=== PATIENT | male | born 1960 | race Hispanic/Latino ===

== ENCOUNTER 2017-09-23 17:27 | Inpatient (IN) | payer OTHER ==
[~2017-09-23] VITALS: Ht 175.3 cm; Wt 95.8 kg
[2017-09-23 18:04] LABS: BASOPHILS % (AUTO) 1.2 % (0.0-5.0); LYMPHOCYTES % (AUTO) 25.7 % (21.0-51.0); MEAN CORPUSCULAR HEMOGLOBIN 33.1 pg (27.0-33.0); MEAN CORPUSCULAR HGB CONC 34.4 g/dL (32.0-36.0); MEAN CORPUSCULAR VOLUME 96.1 fL (79-99); MONOCYTES % (AUTO) 11.3 % (3.0-13.0); NEUTROPHILS % (AUTO) 60.8 % (40.0-77.0); PLATELET COUNT (AUTO) 222 K/uL (130-400); RED BLOOD CELL COUNT(AUTO) 5.31 MIL/uL (4.50-6.20); RED CELL DISTRIBUTION WIDTH 15.3 % (11.0-15.5); WHITE BLOOD COUNT (AUTO) 7.4 K/uL (4.8-10.8)
[2017-09-23] MEDS ORDERED: IOHEXOL-350 75 ML VIAL IV ONE (18:14)
[2017-09-23 18:19] LABS: CREATININE 0.8 mg/dL (0.5-1.5); POTASSIUM 3.1 mmol/L (3.5-5.1)
[2017-09-23 18:20] LABS: INR 0.95 (0.85-1.15); PARTIAL THROMBOPLASTIN TIME 26.6 SEC (26.3-35.5)
[2017-09-23 18:29] LABS: ALBUMIN 3.4 g/dL (3.5-5.0); BILIRUBIN,TOTAL 0.5 mg/dL (0.2-1.0); TOTAL PROTEIN, SERUM 7.6 g/dL (6.0-8.3)
[2017-09-23] MEDS ORDERED: ASPIRIN 325 MG TABLET ONE (18:59)
[2017-09-23] MEDS ORDERED: NICOTINE 21 MG/ 24 HR PATCH TD SCH (20:00)
[2017-09-23 20:36] LABS: APPEARANCE,URINE Clear (CLEAR); BILIRUBIN,URINE Negative (NEGATIVE); COLOR,URINE Yellow (YELLOW); GLUCOSE, URINE (UA) Negative (NEGATIVE); KETONES,URINE Negative (NEGATIVE); LEUKOCYTE ESTERASE ,URINE Negative (NEGATIVE); NITRATE,URINE Negative (NEGATIVE); OCCULT BLOOD,URINE Negative (NEGATIVE); PH,URINE 7.5 (5.0-8.0); PROTEIN,URINE POS 2+ (NEGATIVE)
[2017-09-23 20:47] LABS: BACTERIA,URINE None Seen /HPF (None Seen); RBC,URINE None Seen /HPF (0-1); SQUAMOUS EPITHELIAL CELL,UR None Seen /HPF (0-2); WBC,URINE 0-1 /HPF (0-1)
[2017-09-23 21:19] LABS: AMPHET/METH SCREEN,URINE NEGATIVE (NEGATIVE); BARBITURATE SCREEN, URINE NEGATIVE (NEGATIVE); BENZODIAZEPINES SCREEN,URINE NEGATIVE (NEGATIVE); CANNABINOID SCREEN,URINE NEGATIVE (NEGATIVE); COCAINE SCREEN,URINE NEGATIVE (NEGATIVE); OPIATE SCREEN,URINE NEGATIVE (NEGATIVE); PHENCYCLIDINE SCREEN,URINE NEGATIVE (NEGATIVE)
[2017-09-23 21:30] VITALS: BP 173/101
[2017-09-23] MEDS ORDERED: POTASSIUM CHLORIDE 10% ELIXIR 20 MEQ/15 ML UDCUP PO PRN (21:45)
[2017-09-23] MEDS ORDERED: LIDOCAINE HCL-MPF 1% 2ML VIAL IVP PRN (21:45)
[2017-09-23] MEDS ORDERED: POTASSIUM CHLORIDE 20MEQ/100ML 100 ML IV PRN (21:45)
[2017-09-23] MEDS ORDERED: ACETAMINOPHEN 325 MG TAB PO PRN (21:45)
[2017-09-23] MEDS ORDERED: ONDANSETRON HCL 4 MG/2 ML VIAL IVP PRN (21:45)
[2017-09-24 00:04] VITALS: BP 161/95
[2017-09-24] MEDS ORDERED: CLON0.1T PO (02:10)
[2017-09-24] MEDS ORDERED: AMLO5TAB2 PO (02:10)
[2017-09-24] MEDS ORDERED: VALS1TAB79 PO (02:10)
[2017-09-24 03:56] VITALS: BP 174/98
[2017-09-24 04:05] LABS: HEMATOCRIT 48.1 % (42-54); MEAN CORPUSCULAR HEMOGLOBIN 33.1 pg (27.0-33.0); MEAN CORPUSCULAR HGB CONC 34.5 g/dL (32.0-36.0); MEAN CORPUSCULAR VOLUME 95.9 fL (79-99); PLATELET COUNT (AUTO) 210 K/uL (130-400); RED BLOOD CELL COUNT(AUTO) 5.01 MIL/uL (4.50-6.20); RED CELL DISTRIBUTION WIDTH 15.1 % (11.0-15.5)
[2017-09-24 04:10] LABS: HEMOGLOBIN A1C 7.2 % (4.0-6.0)
[2017-09-24 04:24] LABS: BILIRUBIN,TOTAL 0.7 mg/dL (0.2-1.0); CREATININE 0.9 mg/dL (0.5-1.5); POTASSIUM 3.3 mmol/L (3.5-5.1); THYROID STIMULATING HORMONE 2.41 uIU/mL (0.36-3.74); TOTAL PROTEIN, SERUM 6.8 g/dL (6.0-8.3)
[2017-09-24 07:00] VITALS: BP 176/91
[2017-09-24] MEDS ORDERED: ENOXAPARIN SODIUM 40 MG/0.4 ML SYRINGE SQ SCH (09:00)
[2017-09-24] MEDS: ENOXAPARIN SODIUM 40 MG/0.4 ML SYRINGE SQ SCH (09:00)
[2017-09-24] MEDS: HYDROCHLOROTHIAZIDE 25 MG TABLET PO SCH (10:07)
[2017-09-24] MEDS: LOSARTAN 100 MG TABLET PO SCH (10:07)
[2017-09-24] MEDS: AMLODIPINE BESYLATE 5 MG TAB PO SCH (10:07)
[2017-09-24] MEDS: FAMOTIDINE 20MG TAB 20 MG TAB PO SCH ×2 (10:08→22:48)
[2017-09-24] MEDS: POTASSIUM CHLORIDE 20 MEQ ERTAB PO PRN ×2 (10:08→14:18)
[2017-09-24] MEDS: NICOTINE 21 MG/ 24 HR PATCH TD SCH (10:10)
[2017-09-24] MEDS ORDERED: GADOBENATE DIMEGLUMINE 20 ML IV ONE (10:19)
[2017-09-24] MEDS ORDERED: DIAZEPAM 5 MG TABLET ONE (10:23)
[2017-09-24] MEDS ORDERED: DIAZEPAM 5 MG TABLET PO ONE (10:30)
[2017-09-24 11:00] VITALS: BP 169/91
[2017-09-24] MEDS: ASPIRIN 325 MG TABLET PO SCH (11:25)
[2017-09-24] MEDS: INSULIN HUMULIN R 100 UNIT/ML 3ML SQ SCH ×2 (11:30→22:43)
[2017-09-24] MEDS: CLONIDINE HCL 0.1 MG TABLET PO PRN (14:18)
[2017-09-24 16:00] VITALS: BP 158/92
[2017-09-24 20:00] VITALS: BP 156/79
[2017-09-24] MEDS ORDERED: POTASSIUM CHLORIDE 10 MEQ/TAB.SA PO ONE ×2 (22:41)
[2017-09-24] MEDS: ATORVASTATIN CALCIUM 40 MG TABLET PO SCH (22:48)
[2017-09-24] MEDS: GABAPENTIN 100 MG CAPSULE PO SCH (22:48)
[2017-09-25] VITALS (7 sets, daily range): BP systolic 147–193; BP diastolic 74–99
[2017-09-25] MEDS: INSULIN HUMULIN R 100 UNIT/ML 3ML SQ SCH ×4 (06:35→20:57)
[2017-09-25] MEDS: HYDROCHLOROTHIAZIDE 25 MG TABLET PO SCH (09:30)
[2017-09-25] MEDS: LOSARTAN 100 MG TABLET PO SCH (09:30)
[2017-09-25] MEDS: NICOTINE 21 MG/ 24 HR PATCH TD SCH (09:30)
[2017-09-25] MEDS: FAMOTIDINE 20MG TAB 20 MG TAB PO SCH ×2 (09:30→20:59)
[2017-09-25] MEDS: AMLODIPINE BESYLATE 5 MG TAB PO SCH (09:30)
[2017-09-25] MEDS: ASPIRIN 325 MG TABLET PO SCH (09:30)
[2017-09-25] MEDS: GABAPENTIN 100 MG CAPSULE PO SCH ×2 (09:30→20:59)
[2017-09-25] MEDS: ENOXAPARIN SODIUM 40 MG/0.4 ML SYRINGE SQ SCH (09:31)
[2017-09-25] MEDS: CLONIDINE HCL 0.1 MG TABLET PO PRN (11:59)
[2017-09-25] MEDS ORDERED: LISINOPRIL 10 MG TABLET PO SCH (14:15)
[2017-09-25] MEDS ORDERED: AMLODIPINE BESYLATE 5 MG TAB PO ONE (14:51)
[2017-09-25] MEDS: HYDRALAZINE HCL 20 MG/ML VIAL IV PRN (17:14)
[2017-09-25] MEDS: ATORVASTATIN CALCIUM 40 MG TABLET PO SCH (20:59)
[2017-09-25] MEDS: METOPROLOL TARTRATE 25 MG TAB PO SCH (20:59)
[2017-09-26 04:01] VITALS: BP 166/83
[2017-09-26] MEDS: HYDRALAZINE HCL 20 MG/ML VIAL IV PRN ×2 (05:14→12:44)
[2017-09-26] MEDS: INSULIN HUMULIN R 100 UNIT/ML 3ML SQ SCH ×2 (06:09→11:30)
[2017-09-26 07:00] VITALS: BP 159/86
[2017-09-26] MEDS: LOSARTAN 100 MG TABLET PO SCH (08:13)
[2017-09-26] MEDS: HYDROCHLOROTHIAZIDE 25 MG TABLET PO SCH (08:14)
[2017-09-26] MEDS: METOPROLOL TARTRATE 25 MG TAB PO SCH (08:14)
[2017-09-26] MEDS: GABAPENTIN 100 MG CAPSULE PO SCH (08:14)
[2017-09-26] MEDS: FAMOTIDINE 20MG TAB 20 MG TAB PO SCH (08:14)
[2017-09-26] MEDS: ASPIRIN 325 MG TABLET PO SCH (08:15)
[2017-09-26] MEDS: ENOXAPARIN SODIUM 40 MG/0.4 ML SYRINGE SQ SCH (08:15)
[2017-09-26] MEDS ORDERED: AMLODIPINE BESYLATE 5 MG TAB PO SCH (09:00)
[2017-09-26] MEDS: NICOTINE 21 MG/ 24 HR PATCH TD SCH (09:43)
[2017-09-26 11:00] VITALS: BP 163/86
[2017-09-26] MEDS ORDERED: GABA100C PO (12:35)
[2017-09-26] MEDS ORDERED: METO25 PO (12:35)
[2017-09-26] MEDS ORDERED: ASPI-1012 PO (12:35)
[2017-09-26] MEDS ORDERED: ATOR40TA69 PO (12:35)
[2017-09-26] MEDS ORDERED: AMLO5TAB4 PO (12:35)
[2017-09-26] MEDS ORDERED: NICO-705 TD (12:35)
[2017-09-26 14:00] VITALS: BP 144/78
== END 2017-09-26 14:14 | disposition home or self-care (01) | DRG 66 ==
LOC: EDH 17:27 → EDHIP 19:12 → OBSVTOIN 19:12 → 2AH 21:30
PROVIDERS: ADMIT Family Medicine; ATTEND Family Medicine
DX: I63.9 Cerebral infarction, unspecified (principal); E11.9 Type 2 diabetes mellitus without complications; E66.9 Obesity, unspecified; F17.210 Nicotine dependence, cigarettes, uncomplicated; I15.9 Secondary hypertension, unspecified; Z68.32 Body mass index [BMI] 32.0-32.9, adult; Z91.19 Patient's noncompliance with other medical treatment and regimen; Z82.49 Family history of ischemic heart disease and other diseases of the circulatory system
CPT/HCPCS: 36415; 70450; 70496; 70498; 70553; 71045; 80053; 80061; 80305; 81001; 82550; 82948; 83036; 83874; 84443; 84484; 85025; 85027; 85610; 85730; 93005; 93306; 93880; A9577; J0360; J1650; J1815; Q9967

== ENCOUNTER → 2021-12-09 | Outpatient (CLI) | payer OTHER ==
[~2021-12-09] MED LIST: AMLO5TAB4 PO; ASPI-1005 PO; ATOR40TA69 PO; CLON0.1T PO; CLOP75TA14 PO; GABA100C PO; METO25 PO; NICO-777 TD; VALS1TAB80 PO
== END | disposition home or self-care (01) ==
LOC: RAH 10:46
PROVIDERS: ATTEND Family Medicine
DX: R22.41 Localized swelling, mass and lump, right lower limb (principal)
CPT/HCPCS: 93971

== ENCOUNTER → 2023-09-15 | Outpatient (CLI) | payer OTHER ==
[~2023-09-15] MED LIST changes: +CLOP-31 PO; -CLOP75TA14 PO
== END | disposition home or self-care (01) ==
LOC: RAH 11:00
PROVIDERS: ATTEND Student in an Organized Health Care Education/Training Program
DX: I73.9 Peripheral vascular disease, unspecified (principal)
CPT/HCPCS: 93925

== ENCOUNTER → 2024-03-25 | Outpatient (CLI) | payer OTHER ==
--- NOTE | 2024-03-25 15:18 | HMCSR ---
APPROVED REPORT Laterality: Bilateral Indications Claudication: , PAD VELOCITY AND DOPPLER WAVEFORM ANALYSIS UKE OPERATOR (R) 125.6cm/sec, Monophasic, UKE OPERATOR (L) 198.3cm/sec, Biphasic, Prof Fem Art. (R) 296.7cm/sec, Monophasic, Moderate > 50%Prof Fem Art. (L) 251.2cm/sec, Monophasic , Moderate > 50% Fem Art Prox. (R) 93.0cm/sec, Fem Art Prox. (L) cm/sec, Occluded, Occluded Fem Art Mid. (R) cm/sec, Occluded, Fem Art Mid. (L) cm/sec, Occluded, Occluded Fem Art Dist (R) cm/sec, Occluded, Fem Art Dist. (L) cm/sec, Occluded, Occluded Pop Art(AK) (R) 24.5cm/sec, Monophasic, Pop Art (AK) (L) 50.4cm/sec, Monophasic, Pop Art (Fossa)(R) 34.3cm/sec, Monophasic, Pop Art (Fossa) (L) 46.9cm/sec, Monophasic, Pop Art(BK) (R) 34.3cm/sec, Monophasic, Pop Art (BK) (L) 55.9cm/sec, Monophasic, TECHNICAL SERVICES SPECIALIST Prox. (R) 40.9cm/sec, Monophasic, TECHNICAL SERVICES SPECIALIST Prox. (L) 83.4cm/sec, Monophasic, TECHNICAL SERVICES SPECIALIST Mid. (R) 37.7cm/sec, Monophasic, TECHNICAL SERVICES SPECIALIST Mid. (L) 56.5cm/sec, Monophasic, TECHNICAL SERVICES SPECIALIST Dist. (R) 30.5cm/sec, Monophasic, TECHNICAL SERVICES SPECIALIST Dist. (L) 68.2cm/sec, Monophasic, Per Art Prox. (R) cm/sec, Not visualizedPer Art Prox. (L) cm/sec, Not visualized MED[employer] Prox. (R) 34.2cm/sec, Monophasic, [employer]INA Prox. (L) 50.2cm/sec, Monophasic, [employer]INA Mid. (R) 31.4cm/sec, Monophasic [employer]INA Mid. (L) 23.3cm/sec, Monophasic, [employer] Dist. (R) 39.3cm/sec, Monophasic, MEDINA Dist. (L) 29.6cm/sec, Monophasic, Technologist Impression Right SFA is chronically occluded. Evidence of >50% stenosi in the Right DFA. Recollateralized flow into the Right proximal Popliteal artery. Left SFA is chronically occluded. Evidence of >50% stenosi in the Left DFA. Recollateralized flow into the Left proximal Popliteal artery. Conclusion Bilateral SFA occlusions Severe PAD Clinical correlation recommended Conclusion Bilateral SFA occlusions Severe PAD Clinical correlation recommended
--- NOTE | 2024-03-25 15:20 | HMCSR ---
APPROVED REPORT Bilateral Lower Extremity Venous Study for DVT., Venous Competence. Indications i87.1, i87.2 Vein Imaging CFV (R): Normal flow, augmentation and compression. No evidence of DVT. 18.6mm 1667ms of reflux. SFJ (R): Normal flow, augmentation and compression. No evidence of DVT. FEM (R): Normal flow, augmentation and compression. No evidence of DVT. POP (R): Normal flow, augmentation and compression. No evidence of DVT. 1050ms of reflux. DFV (R): Normal flow, augmentation and compression. No evidence of DVT. PTV (R): Normal flow, augmentation and compression. No evidence of DVT. Peroneals (R): Normal flow, augmentation and compression. No evidence of DVT. GAS (R): CFV (L): Normal flow, augmentation and compression. No evidence of DVT. 15.9mm 1733ms of reflux. SFJ (L): Normal flow, augmentation and compression. No evidence of DVT. FEM (L): Normal flow, augmentation and compression. No evidence of DVT. POP (L): Normal flow, augmentation and compression. No evidence of DVT. DFV (L): Normal flow, augmentation and compression. No evidence of DVT. PTV (L): Normal flow, augmentation and compression. No evidence of DVT. Peroneals (L): Normal flow, augmentation and compression. No evidence of DVT. Technologist Impression Deep veins of the bilateral lower extremities appear patent and compressible without thrombus. Deep venous reflux noted in the RCFV, RPopliteal and LCFV. Superficial venous insufficiency noted in the RSSV. RGSV junction 9.4mm 0.0ms thigh 5.3mm 0.0ms knee 4.5mm 0.0ms calf 2.8mm 0.0ms RSSV prox 2.3mm 0.0ms mid 3.4mm 850ms LGSV junction 8.6mm 417ms thigh 5.1mm 0.0ms knee 4.2mm 0.0ms calf 3.6mm 0.0ms LSSV prox 2.3mm 0.0ms mid 3.4mm 0.0ms Conclusion Deep venous reflux noted Consider formal venography with IVUS if iliac vein compression is suspected No DVT Conclusion Deep venous reflux noted Consider formal venography with IVUS if iliac vein compression is suspected No DVT
== END | disposition home or self-care (01) ==
LOC: SHCH 13:53
PROVIDERS: ATTEND Internal Medicine Cardiovascular Disease
DX: I87.2 Venous insufficiency (chronic) (peripheral) (principal); I73.9 Peripheral vascular disease, unspecified; I87.1 Compression of vein
CPT/HCPCS: 93925; 93970

== ENCOUNTER 2024-07-24 09:42 | Day surgery (SDC) | payer OTHER ==
[2024-07-20 09:52] LABS: HEMATOCRIT 41.4 % (42-54); MEAN CORPUSCULAR HEMOGLOBIN 33.4 pg (27.0-33.0); MEAN CORPUSCULAR HGB CONC 32.9 g/dL (32.0-36.0); MEAN CORPUSCULAR VOLUME 101.7 fL (79-99); RED BLOOD CELL COUNT(AUTO) 4.07 MIL/uL (4.50-6.20); RED CELL DISTRIBUTION WIDTH 15.8 % (11.0-15.5); WHITE BLOOD COUNT (AUTO) 6.4 K/uL (4.8-10.8)
[2024-07-20 09:58] LABS: INR 0.97 (0.85-1.15); PROTHROMBIN TIME 10.3 SEC (9.6-11.6)
[2024-07-20 09:59] LABS: PARTIAL THROMBOPLASTIN TIME 29.9 SEC (26.3-35.5)
[2024-07-20 10:00] LABS: CREATININE 1.2 mg/dL (0.5-1.3); POTASSIUM 4.1 mmol/L (3.5-5.1)
[2024-07-20 10:14] VITALS: BP 187/83; PULSE 68; RESP 18; TEMP 98.1
--- NOTE | 2024-07-20 12:47 | HMCIMG ---
CHEST 1VW HISTORY: Preop COMPARISON: 10/26/2017 FINDINGS: A frontal projection of the chest was obtained. No acute pulmonary infiltrates is seen. The heart is borderline enlarged. Degenerative changes are seen. Prominent interstitial markings are seen. No evidence of aortic calcification is seen. IMPRESSION: 1. No acute pulmonary infiltrate is seen.
--- NOTE | 2024-07-20 12:57 | EKG ---
[facility] Test Date: 2024-07-20 Test Time: 09:31:03 Pat Name: YUMIKO OTERO Department: Patient ID: [id number] Room: Gender: M Manager Pharmaceutical: [id number] : 1960 Requested By: DREAD HINTON Order Number: [id number] Reading MD: Venkatesh Sierra Measurements Intervals [place] Rate: 71 P: 55 MS: 186 QRS: 56 QRSD: 89 T: 79 QT: 395 QTc: 429 Interpretive Statements Sinus rhythm Probable left atrial enlargement Early Repolarization Compared to ECG 10/26/2017 07:10:16 Myocardial infarct finding now present ST (T wave) deviation still present Electronically Signed On 07-20-2024 14:57:05 CDT by Venkatesh Sierra Please click the below link to view image of tracing.
--- NOTE | 2024-07-21 10:31 | NUR ---
REPORT REPORTED EKG TO DR GARCIA. OK TO PROCEED LONG PT ASYMPTOMATIC.
--- NOTE | 2024-07-21 16:42 | NUR ---
preop pt and spouse informed of ozempic protocol. solid food until lunch on wednesday then clears until midnight then npo. understanding voiced
[~2024-07-24] VITALS: Ht 172.7 cm; Wt 108.4 kg
[2024-07-24] MEDS: ceFAZolin SODIUM 2 GM VIAL IVPB SCH (08:30)
[~2024-07-24 09:42] MED LIST changes: +AMLO-258 PO; -AMLO5TAB4 PO; -ASPI-1005 PO; +CHOL100046 PO; -CLON0.1T PO; +EMPA1TAB7 PO; +FOLI1TAB85 PO; -GABA100C PO; +HYDR25TA67 PO; +LOSA100T59 PO; +METO-391 PO; -METO25 PO; -NICO-777 TD; +PIOG30TA70 PO; +SEMA1PEN3 SQ; +SPIR50TA5 PO; -VALS1TAB80 PO; +XARELTO PO
[2024-07-24 10:25] VITALS: BP 142/83; PULSE 71; RESP 18; TEMP 97.2
[2024-07-24] MEDS ORDERED: HEParin-NS 1,000 UNIT/500 ML 500 ML IV ONE (10:30)
[2024-07-24] MEDS ORDERED: ceFAZolin SODIUM 1 GM VIAL ONE (10:34)
[2024-07-24] MEDS ORDERED: acetaMINOPHEN 0 ML ONE (10:54)
[2024-07-24] MEDS ORDERED: FAMOTIDINE 20MG VIAL IV ONE (10:54)
[2024-07-24] MEDS ORDERED: ketaMINE 50MG/ML SYRINGE 50 MG/ML DISP.SYRIN ONE (10:55)
[2024-07-24] MEDS ORDERED: LIDOCAINE PF 100MG/5ML (2%) SYRINGE 5ML ONE (10:56)
[2024-07-24] MEDS ORDERED: proPOFol 10 MG/ML 20ML VIAL IV ONE (10:56)
[2024-07-24] MEDS ORDERED: FENTanyl CITRate PF 50 MCG/1 ML 2ML VIAL ONE (10:57)
[2024-07-24] MEDS ORDERED: rocuRONium bROMide 10MG/1ML 5ML VL ONE (10:57)
[2024-07-24] MEDS: ceFAZolin SODIUM 2 GM VIAL ONE (11:14)
[2024-07-24] MEDS: 0.9%NACL 1000ML 1,000 ML IV ONE (11:14)
--- NOTE | 2024-07-24 12:29 | NUR ---
PROCEDURE CANCELED PER DR. ESQUEDA. MD SPOKE TO PATIENT AT BEDSIDE REGARDING POSSIBLE NEED FOR REPEAT PERIPHERAL ANGIOGRAM. PATIENT VERBALIZED UNDERSTANDING. SPOUSE JORGE MADE AWARE VIA TELEPHONE.
== END 2024-07-24 13:05 ==
LOC: DAH 09:42 → UNDOADMIN 09:42 → DAHIP 09:42 → EDSTATUS 12:00 → UNDODISIN 13:05 → DAH 13:05
PROVIDERS: ATTEND Thoracic Surgery (Cardiothoracic Vascular Surgery)
DX: I73.9 Peripheral vascular disease, unspecified (principal); Z53.8 Procedure and treatment not carried out for other reasons; I10 Essential (primary) hypertension; E11.9 Type 2 diabetes mellitus without complications; Z79.01 Long term (current) use of anticoagulants; Z79.899 Other long term (current) drug therapy; Z98.890 Other specified postprocedural states
CPT/HCPCS: 80048; 85027; 85610; 85730; 86850 ×2; 86900 ×2; 86901 ×2; 36415 ×2; 71045; 93005; 82948; A4223 ×2; A6260; A4663; J3490 ×2; J0690; J7030; J2003; J2704; J1644; A5120; A4215; A4222; A4221; A4216; G0378; J3010

== ENCOUNTER → 2024-09-05 | Outpatient (CLI) | payer OTHER ==
[2024-09-05 22:00] VITALS: PULSE 86; RESP 12
[2024-09-05 22:30] VITALS: PULSE 78; RESP 10
[2024-09-05 23:00] VITALS: PULSE 76; RESP 14
[2024-09-05 23:33] VITALS: PULSE 71; RESP 10
[2024-09-06] VITALS (11 sets, daily range): PULSE 71–87; RESP 8–12
== END | disposition home or self-care (01) ==
LOC: SLP 20:35
PROVIDERS: ATTEND Nurse Practitioner Family
DX: G47.33 Obstructive sleep apnea (adult) (pediatric) (principal); R06.83 Snoring; I10 Essential (primary) hypertension; E11.9 Type 2 diabetes mellitus without complications; I73.9 Peripheral vascular disease, unspecified; F41.9 Anxiety disorder, unspecified; N52.9 Male erectile dysfunction, unspecified; M54.2 Cervicalgia; R53.83 Other fatigue; M54.9 Dorsalgia, unspecified; M25.50 Pain in unspecified joint
CPT/HCPCS: 95810

== ENCOUNTER → 2024-09-10 | Outpatient (CLI) | payer OTHER ==
[2024-09-10 21:59] VITALS: PULSE 78; RESP 14
[2024-09-10 22:30] VITALS: PULSE 74; RESP 18
[2024-09-10 23:00] VITALS: PULSE 70; RESP 14
[2024-09-10 23:30] VITALS: PULSE 74; RESP 16
[2024-09-11] VITALS (11 sets, daily range): PULSE 68–82; RESP 8–18
== END | disposition home or self-care (01) ==
LOC: SLP 20:45
PROVIDERS: ATTEND Nurse Practitioner Family
DX: G47.33 Obstructive sleep apnea (adult) (pediatric) (principal); R06.83 Snoring; I10 Essential (primary) hypertension; E11.9 Type 2 diabetes mellitus without complications; R53.83 Other fatigue; F41.9 Anxiety disorder, unspecified; N52.9 Male erectile dysfunction, unspecified; E66.9 Obesity, unspecified; M54.2 Cervicalgia; M54.9 Dorsalgia, unspecified; M25.50 Pain in unspecified joint; Z68.36 Body mass index [BMI] 36.0-36.9, adult
CPT/HCPCS: 95811